=== PATIENT | female | born 1940 | race Caucasian/White ===

== ENCOUNTER 2018-09-09 06:52 | Day surgery (SDC) | payer OTHER ==
[2018-09-09] MEDS ORDERED: LIDOCAINE 2% MPF 5 ML VIAL ONE (07:30)
[2018-09-09] MEDS ORDERED: BUPIVACAINE 0.25% PF 10 ML VIAL ONE (07:31)
[2018-09-09] MEDS ORDERED: NA CHLORIDE 0.9% 500 ML ONE (07:31)
[2018-09-09] MEDS ORDERED: TETRACAINE HCL 0.5% 2ML OPTH ONE (07:31)
[2018-09-09] MEDS: CYCLOPENTOLATE 1% OPTH 2 ML ONE ×3 (07:32→07:42)
[2018-09-09] MEDS: PHENYLEPHRINE 10% OPTH 5ML ONE ×3 (07:32→07:42)
[2018-09-09] MEDS ORDERED: LIDOCAINE 1% MPF 5 ML VIAL ONE (07:32)
[2018-09-09] MEDS ORDERED: PROPOFOL 200 MG/20 ML VIAL IV ONE (08:03)
[2018-09-09] MEDS ORDERED: LIDOCAINE 1% MPF 2 ML AMPULE ONE (08:06)
[2018-09-09] MEDS ORDERED: NS 0.9% VIAL 10 ML ONE (08:07)
[2018-09-09] MEDS ORDERED: EPINEPHRINE/PF 1 MG/ML AMP ONE (08:08)
[2018-09-09] MEDS ORDERED: BALANCED SALT IRRIG PLAIN 500 ML BTL IRR ONE (08:09)
[2018-09-09] MEDS ORDERED: DUOVISC 1 KIT OPTH ONE (08:10)
[2018-09-09] MEDS: MOXIFLOXACIN HCL 10 DROPS/ML **OR USE OPTH ONE ×2 (08:36→08:47)
--- NOTE | 2018-09-09 08:54 | P.BOP ---
Preoperative diagnosis: Nuclear sclerotic cataract OS Postoperative diagnosis: Same Primary procedure: Phacoemulsification with IOL OS Estimated blood loss: None Anesthesia: Local (Subtenon's infusion with anesthesia for cataract surgery) Complications: None Implants: SA60WF +23.5 Transferred to: Other (Day surgery) Condition: Good
--- NOTE | 2018-09-09 20:14 | OP ---
Date of Procedure: 09/09/2018 Surgeon: Shelbi Flores MD Anesthesiologist: Sierra Lloyd CRNA and Aden Raymond MD Preoperative Diagnosis: Nuclear sclerotic cataract, OS (left eye). Operation Performed: Phacoemulsification with intraocular lens implant, left eye. Anesthesia: Per cataract surgery. Complications: None. Description Of Procedure: In day surgery, the patient was prepped with Betadine and draped. A conju nctival incision was made in the inferior nasal quadrant with Jose Guadalupe scissors. A sub-Tenon block c onsisting of a 1:1 mixture of 2% Xylocaine and 0.25% bupivacaine was placed through the conjunctival incision with a blunt cannula. A Honan balloon was placed over the eye and the patient was transferr ed to the operating room. In the operating room the patient was prepped and draped in the usual sterile fashion for ophthalmic surgery. A lid speculum was placed in the left eye. Two paracentesis sites were made superiorly and inferiorly in the limbal cornea. Viscoat was placed in the anterior chamber and a crescent blade wa s used to make a corneal groove and tunnel, and a keratome was used to enter the anterior chamber. P rovisc was placed in the anterior chamber and a 360 degree capsulotomy was performed with a cystitome . The lens was hydrodissected with BSS and rotated freely. The lens was removed with a stop and cho p technique. 5.53 phaco CDE was used to remove the lens. Residual cortex was removed with the irrig ation and aspiration. Provisc was placed in the capsular bag. A SA60WF +23.5 lens was placed in the capsular bag without complications. Irrigation and aspiration was used to remove residual viscoelas tic. The paracentesis sites were hydrated with BSS. The wound and paracentesis sites were inspected and found to be watertight. Vigamox 0.07 cc was placed intracamerally at the end of the procedure. The eye was irrigated with balanced salt solution. The eye was patched with a soft cotton patch and Cárdenas metal shield. The patient was returned to day surgery in good condition. Comments: Discharge Instructions: Ms. Santacruz is discharged to home in good condition and is to follow with Wilman Flores in morning. TRACI/DREW Voice ID: [id number] Report ID: [id number]
== END 2018-09-09 09:35 | disposition home or self-care (01) ==
LOC: OR 06:52
PROVIDERS: ATTEND Ophthalmology Retina Specialist
PROC: 08RK3JZ Replacement of Left Lens with Synthetic Substitute, Percutaneous Approach (ICD-10-PCS; principal; 2018-09-09 08:30)
DX: H25.12 Age-related nuclear cataract, left eye (principal)
CPT/HCPCS: 66984; J0171; J2001; J2704; V2630

== ENCOUNTER 2020-07-17 08:15 | Emergency (ER) | payer OTHER ==
--- NOTE | 2020-07-17 09:07 | RAD REPORT ---
EXAM DESCRIPTION: RAD - Foot Right 3 View - 07/17/2020 8:54 am CLINICAL HISTORY: PAIN, trauma, site of pain not further characterized COMPARISON: No comparisons FINDINGS: No gross fracture deformity seen and no dislocation or periosteal reaction. Moderate sever ity degenerative change present at the first MTP joint. IP joint degenerative changes are present but mild for age. No erosive or destructive bone process. The medial margin of the tarsal navicular bone shows cortical irregularity on the AP projection. This is not definitive for fracture and needs leena elation with physical exam findings. Cortical irregularity and soft tissue calcifications are present along the dorsal surface of the anterior talus. This can be a site of bone avulsion. Reactive calcif ications from prior trauma can have a similar appearance. Plantar and Achilles spurs are present. Soft tissue swelling is present over the dorsum of the foot. No air or foreign body in the soft tissues. IMPRESSION: No gross fracture deformity is seen. Cortical irregularity along the dorsal surface of the tarsal navicular bone and the anterior dorsal s urface of the talus favored to be chronic change. If the patient continues to have findings concerning for fracture, follow-up MR imaging could be perf ormed.
--- NOTE | 2020-07-17 09:12 | ER ---
Nurse's Notes [facility] Name: Megan Santacruz Age: 79 yrs Sex: Female : 1940 Arrival Date: 07/17/2020 Time: 08:18 Bed 6 Private MD: Diagnosis: Unspecified sprain of right foot Presentation: 07/17 08:24 Chief complaint: Patient states: right foot injury yesterday after missing a step. sv Coronavirus screen: Client denies travel out of the [place] in the last 14 days. At this time, the client does not indicate any symptoms associated with coronavirus-19. Ebola Screen: No symptoms or risks identified at this time. Risk Assessment: Do you want to hurt yourself or someone else? Patient reports no desire to harm self or others. Onset of symptoms was July 16, 2020. 08:24 Method Of Arrival: Wheelchair sv 08:24 Acuity: PAPO 4 sv 08:28 Initial Sepsis Screen: Does the patient meet any 2 criteria? No. Patient's initial tw2 sepsis screen is negative. Does the patient have a suspected source of infection? No. Patient's initial sepsis screen is negative. Triage Assessment: 08:28 General: Appears in no apparent distress. slender, well groomed, Behavior is calm, tw2 cooperative, appropriate for age. Pain: Complains of pain in right foot and ankle. Neuro: Level of Consciousness is awake, alert, obeys commands, Oriented to person, place, time, situation. Cardiovascular: Patient's skin is warm and dry. Respiratory: Airway is patent Respiratory effort is even, unlabored, Respiratory pattern is regular, agonal. GI: No signs and/or symptoms were reported involving the gastrointestinal system. Derm: Skin is intact, is fragile, is thin, Skin is dry, Skin temperature is warm. Musculoskeletal: Circulation, motion, and sensation intact. Range of motion: intact in all extremities, Reports pain in right foot and ankle. 08:30 Injury Description: pt missed a step yesterday. tw2 Historical: - Allergies: 08:26 PENICILLINS; sv 08:26 Sulfa (Sulfonamide Antibiotics); sv 08:26 Codeine; sv 08:26 Aspirin; sv 08:26 Meperidine; sv 08:26 Microdantin; sv - PMHx: 08:26 None; sv - PSHx: 08:26 Cholecystectomy; left hip; sv - Immunization history:: Flu vaccine is up to date. - Social history:: Smoking status: Patient denies any tobacco usage or history of. - Family history:: not pertinent. - Hospitalizations: : No recent hospitalization is reported. Screenin:25 Abuse screen: Denies threats or abuse. Nutritional screening: No deficits noted. tw2 Tuberculosis screening: No symptoms or risk factors identified. Fall Risk Secondary diagnosis (15 points) impaired mobility. Assessment: 08:24 Reassessment: provider at bedside at this time. tw2 08:30 Reassessment: see triage assessment. tw2 08:45 Reassessment: xray at bedside at this time. tw2 09:13 Reassessment: No changes from previously documented assessment. Patient and/or family tw2 updated on plan of care and expected duration. Pain level reassessed. Patient is alert, oriented x 3, equal unlabored respirations, skin warm/dry/pink. provider at bedside at this time with results. Vital Signs: 08:27 BP 130 / 74; Pulse 81; Resp 16; Temp 97.5(TE); Pulse Ox 100% on R/A; Weight 59.87 kg; dh3 Height 5 ft. 5 in. (165.10 cm); Pain 0/10; 09:13 BP 106 / 63; Pulse 70; Resp 17; Pulse Ox 99% on R/A; tw2 08:27 Body Mass Index 21.97 (59.87 kg, 165.10 cm) 3 ED Course: 08:18 Patient arrived in ED. rg4 08:19 Thomas Dyer MD is Attending Physician. rn 08:24 Meg Martinez RN is Primary Nurse. tw2 08:25 Triage completed. sv 08:25 Bed in low position. Call light in reach. Pulse ox on. NIBP on. Warm blanket given. tw2 08:30 Arm band placed on. tw2 08:54 XRAY Foot RIGHT 3 View In Process Unspecified. EDMS 09:10 Jakub Irene MD is Referral Physician. rn 09:21 Ortho shoe applied to right foot. dh3 09:23 No provider procedures requiring assistance completed. Patient did not have IV access tw2 during this emergency room visit. Administered Medications: No medications were administered Outcome: 09:11 Discharge ordered by . rn 09:23 Discharged to home via wheelchair. tw2 : Condition: stable :23 Discharge instructions given to patient, Instructed on discharge instructions, follow up and referral plans. Demonstrated understanding of instructions, follow-up care. :24 Patient left the ED. tw2 Signatures: Dispatcher [employer] Leah Garcia RN RN sv Nieto, Roman, MD MD rn Wise, Tara, RN RN 2 Angie De La Torre [facility] Alisha Rueda [facility]
--- NOTE | 2020-07-17 09:12 | EDPHYS ---
Physician Documentation [facility] Name: Megan Santacruz Age: 79 yrs Sex: Female : 1940 Arrival Date: 07/17/2020 Time: 08:18 Bed 6 Private MD: ED Physician Thomas Dyer HPI: 07/17 09:07 This 79 yrs old Female presents to ER via Wheelchair with complaints of Foot rn Injury. 09:07 The patient presents with an injury, pain, that is acute. The complaints affect the rn right foot. Context: resulted from a mis-step by the patient, the patient can partially bear weight, the patient is able to ambulate. Onset: The symptoms/episode began/occurred yesterday. Modifying factors: The symptoms are alleviated by elevation of extremity, ice packs, the symptoms are aggravated by weight bearing, movement. Severity of symptoms: At their worst the symptoms were moderate, in the emergency department the symptoms are unchanged. The patient has not experienced similar symptoms in the past. The patient has not recently seen a physician. Historical: - Allergies: 08:26 PENICILLINS; sv 08:26 Sulfa (Sulfonamide Antibiotics); sv 08:26 Codeine; sv 08:26 Aspirin; sv 08:26 Meperidine; sv 08:26 Microdantin; sv - PMHx: 08:26 None; sv - PSHx: 08:26 Cholecystectomy; left hip; sv - Immunization history:: Flu vaccine is up to date. - Social history:: Smoking status: Patient denies any tobacco usage or history of. - Family history:: not pertinent. - Hospitalizations: : No recent hospitalization is reported. ROS: 09:07 MS/Extremity: + right foot injury and pain Skin: Negative for rash, and discoloration. rn Exam: 09:07 Constitutional: This is a well developed, well nourished patient who is awake, alert, rn and in no acute distress. MS/ Extremity: Pulses equal, no cyanosis. Neurovascular intact. + mid foot swelling right foot with ecchymosis. No ankle tenderness, no toe tenderness or abnormality. Vital Signs: 08:27 BP 130 / 74; Pulse 81; Resp 16; Temp 97.5(TE); Pulse Ox 100% on R/A; Weight 59.87 kg; dh3 Height 5 ft. 5 in. (165.10 cm); Pain 0/10; 09:13 BP 106 / 63; Pulse 70; Resp 17; Pulse Ox 99% on R/A; tw2 08:27 Body Mass Index 21.97 (59.87 kg, 165.10 cm) dh3 MDM: 08:19 Patient medically screened. rn 09:07 Differential diagnosis: fracture, sprain. Data reviewed: vital signs, nurses notes, rn radiologic studies, plain films, and as a result, I will discharge patient. Counseling: I had a detailed discussion with the patient and/or guardian regarding: the historical points, exam findings, and any diagnostic results supporting the discharge/admit diagnosis, radiology results, the need for outpatient follow up, to return to the emergency department if symptoms worsen or persist or if there are any questions or concerns that arise at home. Response to treatment: the patient's symptoms have mildly improved after treatment, and as a result, I will discharge patient. Special discussion: I discussed with the patient/guardian in detail that at this point there is no indication for admission to the hospital. It is understood, however, that if the symptoms persist or worsen the patient needs to return immediately for re-evaluation. ED course: No acute fracture seen on xray, will splint with post-op shoe and f/u with ortho for repeat imaging. . 07/17 08:26 Order name: XRAY Foot RIGHT 3 View; Complete Time: 09:11 rn 07/17 09:03 Order name: Splint: post-op shoe; Complete Time: 09:21 rn Administered Medications: No medications were administered Disposition: 07/17/20 09:11 Discharged to Home. Impression: Unspecified sprain of right foot. - Condition is Stable. - Discharge Instructions: Foot Sprain. - Medication Reconciliation Form, Thank You Letter, Antibiotic Education, Prescription Opioid Use form. - Follow up: Jakub Irene MD; When: As needed; Reason: Recheck today's complaints, Re-evaluation by your physician. - Problem is new. - Symptoms have improved. Signatures: Dispatcher [employer] EDLeah Cao RN RN sv Nieto, Roman, MD MD rn Wise, Tara, RN RN tw2 Corrections: (The following items were deleted from the chart) 09:24 09:11 07/17/2020 09:11 Discharged to Home. Impression: Unspecified sprain of right tw2 foot. Condition is Stable. Forms are Medication Reconciliation Form, Thank You Letter, Antibiotic Education, Prescription Opioid Use. Follow up: Jakub Irene; When: As needed; Reason: Recheck today's complaints, Re-evaluation by your physician. Problem is new. Symptoms have improved. rn
[2020-07-19 22:25] VITALS: TEMP 97.5
[2020-07-19 22:26] VITALS: BP 106/63; O2SAT 99
== END 2020-07-17 09:24 | disposition home or self-care (01) ==
LOC: ER 08:15
DX: S93.601A Unspecified sprain of right foot, initial encounter (principal); X58.XXXA Exposure to other specified factors, initial encounter; Y93.9 Activity, unspecified; Y92.9 Unspecified place or not applicable; Z88.0 Allergy status to penicillin; Z88.2 Allergy status to sulfonamides; Z88.5 Allergy status to narcotic agent; Z88.8 Allergy status to other drugs, medicaments and biological substances
CPT/HCPCS: 99283

== ENCOUNTER → 2023-09-21 | Emergency (ER) | payer OTHER ==
[~2023-09-21] MED LIST: DERMABOND SKIN ADHESIVE TOP ONE; TDAP (DIPHTH,PERTUSS(ACELL),TET VAC) 0.5 ML VIAL IMVAC ONE
--- NOTE | 2023-09-21 09:49 | RAD REPORT ---
EXAM DESCRIPTION: RAD - Forearm Right - 09/21/2023 9:42 am CLINICAL HISTORY: PAIN COMPARISON: Hand Right 3 View dated 09/21/2023 FINDINGS: Mildly comminuted intra-articular fracture of the distal radius is present. Ulnar styloid fracture also likely present. No dislocation seen.
--- NOTE | 2023-09-21 09:50 | RAD REPORT ---
EXAM DESCRIPTION: RAD - Hand Right 3 View - 09/21/2023 9:42 am CLINICAL HISTORY: PAIN COMPARISON: No comparisons FINDINGS: Intra-articular fracture of the distal radius is present. Ulnar styloid avulsion fracture also seen. Prominent degenerative change first carpometacarpal joint. 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
--- NOTE | 2023-09-21 12:53 | EDPHYS ---
Physician Documentation [facility] Name: Megan Santacruz Age: 83 yrs Sex: Female : 1940 Arrival Date: 09/21/2023 Time: 08:59 Bed 20 Private MD: Del Carias H ED Physician Thomas Dyer HPI: 09/21 09:39 This 83 yrs old Female presents to ER via Ambulatory with complaints of Fall Injury, rn wrist injury. 09:39 Details of fall: The patient fell from an upright position. Onset: The symptoms/episode rn began/occurred just prior to arrival. Associated injuries: The patient sustained Right wrist and forearm. Severity of symptoms: At their worst the symptoms were moderate, in the emergency department the symptoms are unchanged. The patient has not experienced similar symptoms in the past. Patient reports was walking, tripped, fell and injured right wrist and forearm. Laceration/skin avulsion to the right forearm with deformity of the right wrist and hand. Denies any other injury or pain. No LOC. Does not take blood thinners. Unknown last tetanus shot. Historical: - Allergies: 09:12 Aspirin; mb9 09:12 Codeine; mb9 09:12 meperidine; mb9 09:12 microdantin; mb9 09:12 PENICILLINS; mb9 09:12 Sulfa (Sulfonamide Antibiotics); mb9 - PMHx: 09:12 Hypertensive disorder; mb9 - PSHx: 09:12 Cholecystectomy; mb9 - Immunization history:: Adult Immunizations up to date. - Social history:: Smoking status: Patient denies any tobacco usage or history of. - Family history:: not pertinent. - Hospitalizations: : No recent hospitalization is reported. ROS: 09:41 Constitutional: Negative for fever, chills, and weight loss, ENT: Negative for injury, rn pain, and discharge, Neck: Negative for injury, pain, and swelling, Cardiovascular: Negative for chest pain, palpitations, and edema, Respiratory: Negative for shortness of breath, cough, wheezing, and pleuritic chest pain, Abdomen/GI: Negative for abdominal pain, nausea, vomiting, diarrhea, and constipation, MS/Extremity: + for right forearm and wrist injury Skin: + laceration/avulsion to right forearm Neuro: Negative for headache, weakness, numbness, tingling, and seizure, Exam: 09:41 Constitutional: This is a well developed, well nourished patient who is awake, alert, rn and in no acute distress. Head/Face: Normocephalic, atraumatic. Neck: No midline cervical tenderness Chest/axilla: Normal chest wall appearance and motion. Nontender with no deformity. No lesions are appreciated. Cardiovascular: Regular rate and rhythm. No pulse deficits. Respiratory: No increased work of breathing, no retractions or nasal flaring. Abdomen/GI: Soft, non-tender MS/ Extremity: Pulses equal, no cyanosis. Neurovascular intact. Swelling and ecchymosis to the right distal wrist extending into the proximal hand. Tenderness over distal radius with slight dorsal deformity. Right dorsal forearm with chevron skin avulsion/laceration with 2 cm on both edges of wound. No active bleeding. No foreign bodies or contamination. Skin is very thin in that region and not sure he can take sutures. Neuro: Awake and alert, GCS 15, oriented to person, place, time, and situation. Cranial nerves II-XII grossly intact. Motor strength 5/5 in all extremities. Sensory grossly intact. Vital Signs: 09:11 BP 158 / 93; Pulse 73; Resp 16; Temp 98; Pulse Ox 100% ; Weight 57.15 kg; Height 5 ft. mb9 5 in. ; Pain 8/10; 09:37 BP 138 / 94; Pulse 70; Resp 16; Pulse Ox 99% on R/A; mb9 11:19 BP 134 / 71; Pulse 74; Resp 16; Pulse Ox 100% on R/A; mb9 09:11 Body Mass Index 20.97 (57.15 kg, 165.1 cm) mb9 09:11 Pain Scale: Adult mb9 Procedures: 12:50 Splinting: Splint applied to right wrist using Orthoglass splint, wrist splint, applied rn by myself. nurse. Examined by me, post splint application: neurovascular intact, 2+ distal pulses palpable, brisk capillary refill noted, Patient tolerated well, Splinted after fingertrap to gravity. MDM: 09:08 Patient medically screened. rn 11:25 ED course: Wound is so fragile with very thin skin superficially that sutures would not rn hold. Especially given the fact that patient is going to be put in a splint on that arm, decision made jointly with patient to approximate wound with Steri-Strips and dressed with nonadherent dressing underlying splint.. 12:18 ED course: And approximated with Steri-Strips. Patient now in finger traps to gravity rn for gentle traction and splinting. 12:50 Differential diagnosis: abrasion, contusion, fracture, sprain, strain. Data reviewed: rn vital signs, nurses notes, radiologic studies, plain films, and as a result, I will discharge patient. Counseling: I had a detailed discussion with the patient and/or guardian regarding the historical points, exam findings, and any diagnostic results supporting the discharge/admit diagnosis, radiology results, the need for outpatient follow up, to return to the emergency department if symptoms worsen or persist or if there are any questions or concerns that arise at home. Response to treatment: the patient's symptoms have markedly improved after treatment, and as a result, I will discharge patient. 09/21 09:19 Order name: XRAY Forearm RIGHT; Complete Time: 09:51 rn 09/21 09:19 Order name: XRAY Hand RIGHT 3 View; Complete Time: 09:51 rn 09/21 09:19 Order name: NPO; Complete Time: 09:24 rn 09/21 09:19 Order name: Wound Care; Complete Time: 09:24 rn 09/21 09:19 Order name: Dermabond; Complete Time: :24 rn 09/21 10:51 Order name: Misc. Order: finger trap to gravity; Complete Time: 12:00 rn Administered Medications: 09:51 Drug: Tetanus Toxoid,Adsorbed IM 0.5 ml IM once; Provide Vaccine Information Statement mb9 (VIS). {Polish [employer]ounder: [employer]; Exp: SunAug 11 2025; Lot #: [id number]; Series: 1 of 1; Patient Consent: Obtained; Date/Time: ; Source Name: Megan Santacruz; Source Relationship: Self; Address Information: [address] [place] [id number]; ; Education: Provided; VIS Presented Date: ; VIS Publication: Tetanus/Diphtheria (Td) VIS 09/02/2013 (historic)} Route: IM; Site: right deltoid; 12:00 Follow up: Response: No adverse reaction mb9 Disposition Summary: 09/21/23 12:53 Discharge Ordered Notes: Location: Home rn Problem: new rn Symptoms: have improved rn Condition: Stable rn Diagnosis - Fracture of shaft of radius - Intraarticular, closed, right, acute rn - Displaced fracture of right ulna styloid process rn Followup: rn - With: Toño Jacobs MD - When: 5 - 6 days - Reason: Recheck today's complaints, Continuance of care, Re-evaluation by your physician Discharge Instructions: - Discharge Summary Sheet rn - Wrist Fracture Treated With Immobilization rn Forms: - Medication Reconciliation Form rn - Thank You Letter rn - Antibiotic help desk intern - Prescription Opioid Use rn - Patient Portal Instructions rn - Leadership Thank You Letter rn Prescriptions: - gabapentin 300 mg Oral capsule - take 1 capsule ORAL route every 12 hours As needed; 14 capsule; Refills: 0, rn Product Selection Permitted Signatures: Dispatcher [employer] Thomas Deutsch MD MD rn Breneman, Chelsy Kimble RN RN mb9
--- NOTE | 2023-09-21 12:53 | ER ---
Nurse's Notes [facility] Name: Megan Santacruz Age: 83 yrs Sex: Female : 1940 Arrival Date: 09/21/2023 Time: 08:59 Bed 20 Private MD: Del Carias H Diagnosis: Fracture of shaft of radius-Intraarticular, closed, right, acute;Displaced fracture of right ulna styloid process Presentation: 09/21 09:11 Chief complaint: Patient states: "About 1 hr ago, I was walking in my living room, mb9 tripped, and fell landing on my right hand/wrist. It's swollen and can barley move my fingers. I also cut my right forearm as well.". Coronavirus screen: Vaccine status: Patient reports being unvaccinated. Ebola Screen: No symptoms or risks identified at this time. Initial Sepsis Screen: Does the patient meet any 2 criteria? No. Patient's initial sepsis screen is negative. Does the patient have a suspected source of infection? No. Patient's initial sepsis screen is negative. Risk Assessment: Do you want to hurt yourself or someone else? Patient reports no desire to harm self or others. Onset of symptoms was September 21, 2023. 09:11 Method Of Arrival: Ambulatory mb9 09:11 Acuity: PAPO 3 mb9 Triage Assessment: 09:12 General: Appears uncomfortable, Behavior is calm, cooperative. Pain: Complains of pain mb9 in right hand and right arm Pain does not radiate. Pain currently is 8 out of 10 on a pain scale. Quality of pain is described as throbbing, Pain began suddenly, Is continuous, Aggravated by repositioning. EENT: No signs and/or symptoms were reported regarding the EENT system. Neuro: Francois Agitation-Sedation Scale (RASS): 0 - Alert and Calm Level of Consciousness is awake, alert, obeys commands, Oriented to person, place, time, situation, Appropriate for age. Cardiovascular: Patient's skin is warm and dry. Respiratory: Airway is patent Respiratory effort is even, unlabored, Respiratory pattern is regular, symmetrical. GI: No signs and/or symptoms were reported involving the gastrointestinal system. : No signs and/or symptoms were reported regarding the genitourinary system. Derm: Wound noted right arm Wound is skin abrasion. No active bleeding noted. Musculoskeletal: Range of motion: limited in right wrist. Historical: - Allergies: 09:12 Aspirin; mb9 09:12 Codeine; mb9 09:12 meperidine; mb9 09:12 microdantin; mb9 09:12 PENICILLINS; mb9 09:12 Sulfa (Sulfonamide Antibiotics); mb9 - PMHx: 09:12 Hypertensive disorder; mb9 - PSHx: 09:12 Cholecystectomy; mb9 Historical Immunization: - Administered Vaccines 09:51 Tetanus Toxoid,Adsorbed IM 0.5 ml mb9 [employer]: [employer]; Exp: SunAug 11 2025; Lot #: [id number]; Series: 1 of ; Patient Consent: Obtained; Date/Time: ; Source Name: Megan Santacruz; Source Relationship: Self; Address Information: [address] [place] [address]; ; Education: Provided; VIS Presented Date: ; VIS Publication: Tetanus/Diphtheria (Td) VIS 09/02/2013 (historic) - Immunization history:: Adult Immunizations up to date. - Social history:: Smoking status: Patient denies any tobacco usage or history of. - Family history:: not pertinent. - Hospitalizations: : No recent hospitalization is reported. Screenin:14 [facility] ED Fall Risk Assessment (Adult) History of falling in the last 3 months, mb9 including since admission Yes- single mechanical fall (1 pt) Confusion or Disorientation No (0 pts) Intoxicated or Sedated No (0 pts) Impaired Gait No (0 pts) Mobility Assist Device Used No (0 pt) Altered Elimination No (0 pt) Score/Fall Risk Level 0 - 2 = Low Risk Oriented to surroundings, Maintained a safe environment, Educated pt \\T\\ family on fall prevention, incl call for assistance when getting out of bed. Abuse screen: Denies threats or abuse. Nutritional screening: No deficits noted. Tuberculosis screening: No symptoms or risk factors identified. Assessment: 09:14 Reassessment: see triage assessment. mb9 10:39 Reassessment: No changes from previously documented assessment. Patient and/or family mb9 updated on plan of care and expected duration. Pain level reassessed. Patient is alert, oriented x 3, equal unlabored respirations, skin warm/dry/pink. 12:00 Reassessment: No changes from previously documented assessment. Patient and/or family mb9 updated on plan of care and expected duration. Pain level reassessed. Patient is alert, oriented x 3, equal unlabored respirations, skin warm/dry/pink. 13:05 Reassessment: Patient and/or family updated on plan of care and expected duration. Pain mb9 level reassessed. Patient is alert, oriented x 3, equal unlabored respirations, skin warm/dry/pink. Patient states feeling better. Patient states symptoms have improved. Cardiovascular: Capillary refill is brisk in bilateral fingers. Vital Signs: 09:11 BP 158 / 93; Pulse 73; Resp 16; Temp 98; Pulse Ox 100% ; Weight 57.15 kg; Height 5 ft. mb9 5 in. ; Pain 8/10; 09:37 BP 138 / 94; Pulse 70; Resp 16; Pulse Ox 99% on R/A; mb9 11:19 BP 134 / 71; Pulse 74; Resp 16; Pulse Ox 100% on R/A; mb9 09:11 Body Mass Index 20.97 (57.15 kg, 165.1 cm) mb9 09:11 Pain Scale: Adult mb9 ED Course: 09:00 Patient arrived in ED. mr 09:00 Del Carias DO is Private Physician. mr 09:03 Chelsy Pittman, RN is Primary Nurse. mb9 09:08 Thomas Dyer MD is Attending Physician. rn 09:12 Triage completed. mb9 09:12 Arm band placed on. mb9 09:14 Bed in low position. Call light in reach. Side rails up X 1. Client placed on mb9 continuous cardiac and pulse oximetry monitoring. NIBP monitoring applied. Door closed. Noise minimized. Warm blanket given. 09:14 No provider procedures requiring assistance completed. mb9 09:15 Wound care: to abrasion, located on right arm was cleaned with soap and water, dressed mb9 with ice pack applied. Patient tolerated well. 09:43 XRAY Forearm RIGHT In Process Unspecified. EDMS 09:43 XRAY Hand RIGHT 3 View In Process Unspecified. EDMS 12:52 Toño Jacobs MD is Referral Physician. rn 13:06 Patient did not have IV access during this emergency room visit. mb9 Administered Medications: 09:51 Drug: Tetanus Toxoid,Adsorbed IM 0.5 ml IM once; Provide Vaccine Information Statement mbLayla (VIS). {Wel[employer]: [employer]; Exp: SunAug 11 2025; Lot #: [id number]; Series: of ; Patient Consent: Obtained; Date/Time: ; Source Name: Megan Santacruz; Source Relationship: Self; Address Information: [address] [place], [place] [id number]; ; Education: Provided; VIS Presented Date: ; VIS Publication: Tetanus/Diphtheria (Td) VIS 09/02/2013 (historic)} Route: IM; Site: right deltoid; 12:00 Follow up: Response: No adverse reaction fermin Medication: 09:14 VIS not applicable for this client. fermin Outcome: 12:53 Discharge ordered by . rn 13:06 Discharged to home ambulatory, fermin 13:06 Condition: stable 13:06 Discharge instructions given to patient, Instructed on discharge instructions, follow up and referral plans. Demonstrated understanding of instructions, follow-up care, medications, Prescriptions given X 1, 13:06 Patient left the ED. mb9 Signatures: Dispatcher [employer] Chelsy Colelo Reg Reg mr Nieto, Roman, MD MD rn Breneman, Mary Beth, RN RN mb9
[2023-09-21 13:28] VITALS: BP 134/71; TEMP 98; O2SAT 100
== END ==
LOC: ER 08:59
PROC: 2W3CX1Z Immobilization of Right Lower Arm using Splint (ICD-10-PCS; principal; 2023-09-21)
DX: S52.391A Other fracture of shaft of radius, right arm, initial encounter for closed fracture (principal); S52.611A Displaced fracture of right ulna styloid process, initial encounter for closed fracture; Z23 Encounter for immunization; Z88.0 Allergy status to penicillin; Z88.5 Allergy status to narcotic agent; Z88.6 Allergy status to analgesic agent; Z88.8 Allergy status to other drugs, medicaments and biological substances

== ENCOUNTER 2024-08-24 16:30 | Inpatient (IN) | payer OTHER ==
[2024-08-24] MEDS ORDERED: ONDANSETRON 4 MG/2 ML VIAL ONE (17:53)
[2024-08-24 18:23] LABS: Absolute Lymphocytes (CBC) 1.2 K/uL (0.7-4.9); Absolute Monocytes 0.4 K/uL (0.1-1.3); Absolute Neutrophil 3.4 K/uL (1.8-8.0); Basophils % 0.3 % (0-1.3); Eosinophils % 0.3 % (0-4.4); Hematocrit 40.9 % (36.0-45.0); Hemoglobin 14.3 g/dL (12.0-15.0); Lymphocytes % 24.5 % (15.3-44.8); MCH 30.7 pg (27.0-35.0); MCHC 34.9 g/dL (32.0-36.0); Monocytes % 8.8 % (3.3-12.3); Neutrophils % 66.1 % (41.7-73.7); Platelets 219 thou/uL (152-406); RBC Red Blood Cell Count 4.65 M/uL (3.86-4.86); Red Cell Distribution Width 13.4 % (12.1-15.2)
[2024-08-24 18:36] LABS: ALT/SGPT 27 U/L (13-56); AST/SGOT 19 U/L (15-37); Albumin 3.4 g/dL (3.4-5.0); Albumin/Globulin Ratio 0.9 (1.1-1.8); Alkaline Phosphatase 98 U/L (45-117); Anion Gap 11.6 mEq/L (5.0-15.0); BUN Blood Urea Nitrogen 15 mg/dL (7-18); Bicarbonate 24 mEq/L (21-32); Bilirubin Total 0.7 mg/dL (0.2-1.0); Globulin 3.6 g/dL (2.3-3.5); Glomerular Filtration Rate 48 ml/min (=/>90); Glucose Level 105 mg/dL (74-106); Magnesium 2.1 mg/dL (1.6-2.4); Potassium 3.6 mEq/L (3.5-5.1); Sodium Level 138 mEq/L (136-145); Troponin High Sensitivity 6.6 pg/mL (<58.9)
[2024-08-24 18:38] LABS: Bilirubin Direct < 0.2 mg/dL (0-0.2); Bilirubin Indirect, Calculated 0.5 mg/dL (0.2-0.8)
[2024-08-24 18:51] LABS: SARS-CoV-2 Antigen CONTROL BLUE LINE VIS/BG OK; SARS-CoV-2 Antigen Rapid Res Negative (Negative)
--- NOTE | 2024-08-24 18:56 | RAD REPORT ---
EXAM: Chest Single View HISTORY: general weakness COMPARISON: None. FINDINGS: LUNGS/PLEURA: The lungs are clear. No pleural effusions or pneumothorax. No pulmonary edema. Calcifie d pulmonary nodules. Probable emphysema. MEDIASTINUM: The mediastinal silhouette is within normal limits. CARDIAC: The cardiac silhouette is within normal limits. UPPER ABDOMEN: No significant abnormality. BONES: No acute abnormality. LINES/TUBES/OTHER: N/A IMPRESSION: No evidence of acute cardiopulmonary disease.
[2024-08-24 20:37] LABS: Specific Gravity 1.026 (1.005-1.030); Sqamous Epithelial <5 /HPF (None Seen); Urine Bacteria None Seen /HPF (<20); Urine Bilirubin NEGATIVE (Negative); Urine Blood Negative (Negative); Urine Clarity Clear (Clear); Urine Color Yellow (Yellow); Urine Crystals Unidentified Few /HPF (None Seen); Urine Culture Reflex Order NOT NEEDED; Urine Glucose NEGATIVE (Negative); Urine Ketones 2+ (Negative); Urine Micro Reflex YN NO BILL MICROSCOPIC; Urine Mucus 1+ /HPF (None Seen); Urine Nitrite NEGATIVE (Negative); Urine Protein TRACE (Negative); Urine RBC <5 /HPF (None Seen); Urine Urobilinogen Normal (Normal); Urine WBC <5 /HPF (<5)
--- NOTE | 2024-08-24 21:13 | ER ---
Nurse's Notes [facility] Name: Megan Santacruz Age: 84 yrs Sex: Female : 1940 Arrival Date: 08/24/2024 Time: 16:30 Bed 13 Private MD: Diagnosis: Weakness Presentation: 08/24 16:49 Chief complaint: Patient states: NAUSEA WITH GENERAL WEAKNESS X 1 WEEK. STATES IS STILL db EATING. PT LIVES AT [facility]. PT HAVING A HARD TIME REMEMBER THINGS. Coronavirus screen: Client denies travel out of the [place] in the last 14 days. At this time, the client does not indicate any symptoms associated with coronavirus-19. Ebola Screen: Patient negative for fever greater than or equal to 101.5 degrees Fahrenheit, and additional compatible Ebola Virus Disease symptoms Patient denies exposure to infectious person. Patient denies travel to an Ebola-affected area in the 21 days before illness onset. No symptoms or risks identified at this time. Initial Sepsis Screen: Does the patient meet any 2 criteria? No. Patient's initial sepsis screen is negative. Does the patient have a suspected source of infection? No. Patient's initial sepsis screen is negative. Risk Assessment: Do you want to hurt yourself or someone else? Patient reports no desire to harm self or others. Onset of symptoms was August 18, 2024. 16:49 Method Of Arrival: Ambulatory db 16:49 Acuity: PAPO 3 db Triage Assessment: 16:50 General: Appears in no apparent distress. comfortable, Behavior is calm, cooperative. db Pain: Denies pain. Neuro: Level of Consciousness is awake, alert, obeys commands, Oriented to person, place, time. Respiratory: Airway is patent Respiratory effort is even, unlabored, Respiratory pattern is regular, symmetrical. Historical: - Allergies: 16:50 Aspirin; db 16:50 Codeine; db 16:50 meperidine; db 16:50 microdantin; db 16:50 PENICILLINS; db 16:50 Sulfa (Sulfonamide Antibiotics); db - Home Meds: 16:51 Lisinopril Oral [Active]; Metoprolol Tartrate Oral [Active]; citalopram oral [Active]; db clopidogrel oral [Active]; donepezil oral [Active]; Diazepam Oral [Active]; - PMHx: 16:50 Hypertensive disorder; db - PSHx: 16:50 Cholecystectomy; db - Immunization history:: Adult Immunizations unknown. - Infectious Disease History:: Denies. - Social history:: Smoking status: Patient denies any tobacco usage or history of. Screenin:17 [facility] ED Fall Risk Assessment (Adult) History of falling in the last 3 months, ko1 including since admission No falls in past 3 months (0 pts) Confusion or Disorientation No (0 pts) Intoxicated or Sedated No (0 pts) Impaired Gait No (0 pts) Mobility Assist Device Used No (0 pt) Altered Elimination No (0 pt) Score/Fall Risk Level 0 - 2 = Low Risk Oriented to surroundings, Maintained a safe environment, Educated pt \T\ family on fall prevention, incl call for assistance when getting out of bed, Assessed \T\ reinforced patient's understanding of fall precautions, Hourly rounding (assess needs \T\ fall precautionary measures) done. Abuse screen: Denies threats or abuse. Denies injuries from another. Nutritional screening: No deficits noted. Tuberculosis screening: No symptoms or risk factors identified. Assessment: 18:17 General: Appears in no apparent distress. Behavior is calm, cooperative, appropriate ko1 for age. Pain: Denies pain. Neuro: No deficits noted. Cardiovascular: No deficits noted. Respiratory: No deficits noted. GI: Reports nausea. : No deficits noted. No signs and/or symptoms were reported regarding the genitourinary system. EENT: No deficits noted. No signs and/or symptoms were reported regarding the EENT system. Derm: No deficits noted. No signs and/or symptoms reported regarding the dermatologic system. Musculoskeletal: Reports weakness in generalilzed. 19:20 Reassessment: Patient appears in no apparent distress at this time. Patient and/or kj2 family updated on plan of care and expected duration. Pain level reassessed. Patient is alert, oriented x 3, equal unlabored respirations, skin warm/dry/pink. 20:20 Reassessment: Patient appears in no apparent distress at this time. Patient and/or kj2 family updated on plan of care and expected duration. Pain level reassessed. Patient is alert, oriented x 3, equal unlabored respirations, skin warm/dry/pink. 08/25 04:04 Reassessment: LORNE HEAD (SISTER) TEL NO# [phone]. rg5 Vital Signs: 08/24 16:49 BP 146 / 97; Pulse 68; Resp 16; Temp 99.1; Pulse Ox 95% ; Weight 56.7 kg; Height 5 ft. db 5 in. ; Pain 0/10; 18:14 Temp 98.1; kb4 18:17 BP 145 / 95; Pulse 64; Resp 17; Pulse Ox 98% on R/A; ko1 20:49 BP 166 / 94; Pulse 66; Resp 20; Pulse Ox 100% on R/A; kj2 16:49 Body Mass Index 20.80 (56.70 kg, 165.1 cm) db 16:49 Pain Scale: Adult db ED Course: 16:32 Patient arrived in ED. im 16:50 Triage completed. db 16:51 Arm band placed on. db 17:00 Lele Mariee PA is PHCP. cp 17:00 Thomas Dyer MD is Attending Physician. cp 17:35 Radha Ramirez, ROBERTO is Primary Nurse. ko1 18:13 Initial lab(s) drawn, by me, sent to lab. EKG done, by ED staff, reviewed by Lele Mariee kb4 YAYO COVID swab sent to lab. Flu and/or RSV swab sent to lab. Inserted saline lock: 20 gauge in right antecubital area, using aseptic technique. Blood collected. Flushed with 10 mL NS. 18:17 Patient has correct armband on for positive identification. Allergy band placed. Bed in ko1 low position. Call light in reach. Side rails up X 1. Provided Education on: labs, meds. Client placed on continuous cardiac and pulse oximetry monitoring. NIBP monitoring applied. retail representative on. Door closed. Noise minimized. Lights dimmed. Warm blanket given. Pillow given. 18:17 RSV Sent. ko1 18:17 Influenza Screen (a \T\ B) Sent. ko1 18:17 SARS RAPID Sent. ko1 18:17 Basic Metabolic Panel Sent. ko1 18:17 CBC with Diff Sent. ko1 18:17 LFT's Sent. ko1 18:17 Magnesium Sent. ko1 18:17 Troponin HS Sent. ko1 18:43 XRAY Chest (1 view) In Process Unspecified. EDMS 19:33 Mahendra Moeller DO is Attending Physician. cp 19:55 No provider procedures requiring assistance completed. kj2 21:11 Vanessa Celaya MD is Hospitalizing Provider. cp 22:00 Patient admitted, IV remains in place. intact, No redness/swelling at site. rg5 22:30 Head Brain Wo Cont In Process Unspecified. EDMS 08/25 07:22 Primary Nurse role handed off by Radha Ramirez, ROBERTO bd 17:10 Paradise Kidd, RN is Primary Nurse. ll1 Administered Medications: 08/24 18:05 Drug: Ondansetron IVP 4 mg IVP once; over 2 minutes Route: IVP; Site: right antecubital;ko1 18:20 Follow up: Response: No adverse reaction ko1 Medication: 18:17 VIS not applicable for this client. ko1 Outcome: 21:12 Decision to Hospitalize by Provider. cp 22:00 Condition: stable rg5 22:00 Admitted to ER Hold. Please see [facility] for further documentation. rg5 22:00 Instructed on the need for admit, 08/25 22:05 Patient left the ED. vc1 Signatures: Dispatcher [employer] EDAL Octavia Ramey Lele Mariee, YAYO PA cp Paradise Kidd, RN RN ll1 Ida Guidry RN RN vc1 Radha Ramirez, RN RN ko1 Stephenie Meng, RN RN db Shayna Soni Rommel RN RN rg5 Mali Kurtz RN RN kj2 Lea Toribio kb4 Corrections: (The following items were deleted from the chart) 08/24 16:54 16:49 Chief complaint: Patient states: NAUSEA WITH GENERAL WEAKNESS X 1 WEEK. STATES IS db STILL EATING db
--- NOTE | 2024-08-24 21:13 | EDPHYS ---
Physician Documentation [facility] Name: Megan Santacruz Age: 84 yrs Sex: Female : 1940 Arrival Date: 08/24/2024 Time: 16:30 Bed 13 Private MD: ED Physician Mahendra Moeller HPI: 08/24 17:50 This 84 yrs old Female presents to ER via Ambulatory with complaints of Congestion, cp Nausea, General Weakness. 17:50 The patient's problem is reported as weakness, that is generalized. cp 17:50 Onset: The symptoms/episode began/occurred 1 week(s) ago. Duration: The episode is cp continuous. Associated signs and symptoms: Pertinent positives: sinus congestion, Pertinent negatives: abdominal pain, chest pain, diarrhea, headache, vomiting, fever. Patient's baseline: Neuro: alert and fully oriented, Motor: no deficits, Ambulation: walks without assistance, Speech: normal. Historical: - Allergies: 16:50 Aspirin; db 16:50 Codeine; db 16:50 meperidine; db 16:50 microdantin; db 16:50 PENICILLINS; db 16:50 Sulfa (Sulfonamide Antibiotics); db - Home Meds: 16:51 Lisinopril Oral [Active]; Metoprolol Tartrate Oral [Active]; citalopram oral [Active]; db clopidogrel oral [Active]; donepezil oral [Active]; Diazepam Oral [Active]; - PMHx: 16:50 Hypertensive disorder; db - PSHx: 16:50 Cholecystectomy; db - Immunization history:: Adult Immunizations unknown. - Infectious Disease History:: Denies. - Social history:: Smoking status: Patient denies any tobacco usage or history of. ROS: 17:55 Constitutional: Negative for body aches, chills, fever, poor PO intake, cp 17:55 Eyes: Negative for injury, pain, redness, and discharge, cp 17:55 ENT: Negative for drainage from ear(s), ear pain, sore throat, difficulty swallowing, difficulty handling secretions, 17:55 Cardiovascular: Negative for chest pain, edema, palpitations, 17:55 Respiratory: Negative for cough, shortness of breath, wheezing, 17:55 Abdomen/GI: Negative for abdominal pain, vomiting, diarrhea, constipation, anorexia, black/tarry stool, rectal bleeding, 17:55 : Negative for urinary symptoms, 17:55 Neuro: Positive for weakness, Negative for altered mental status, dizziness, headache, syncope, 17:55 All other systems are negative, Exam: 18:00 Constitutional: The patient appears in no acute distress, alert, awake, cp non-diaphoretic, non-toxic, well developed, well nourished, 18:00 Head/Face: Normocephalic, atraumatic. cp 18:00 Eyes: Periorbital structures: appear normal, Pupils: equal, round, and reactive to light and accomodation, Extraocular movements: intact throughout, Conjunctiva: normal, no exudate, no injection, Sclera: no appreciated abnormality, Lids and lashes: appear normal, bilaterally, 18:00 ENT: External ear(s): are unremarkable, Nose: is normal, Mouth: Lips: moist, Oral mucosa: pink and intact, moist, Posterior pharynx: Airway: no evidence of obstruction, patent, 18:00 Neck: ROM/movement: is normal, is supple, without pain, no range of motions limitations, no meningismus, no nuchal rigidity, 18:00 Chest/axilla: Inspection: normal, 18:00 Cardiovascular: Rate: normal, Rhythm: regular, Edema: is not appreciated, JVD: is not appreciated, 18:00 Respiratory: the patient does not display signs of respiratory distress, Respirations: normal, no use of accessory muscles, no retractions, labored breathing, is not present, Breath sounds: are clear throughout, no decreased breath sounds, no stridor, no wheezing, 18:00 Abdomen/GI: Inspection: abdomen appears normal, Palpation: abdomen is soft and non-tender, in all quadrants, 18:00 Back: pain, is absent, ROM is normal, 18:00 Neuro: Orientation: to person, place \T\ time. Mentation: is normal, Cerebellar function: is grossly normal, Motor: moves all fours, strength is normal, Sensation: is normal, 18:15 ECG was reviewed by the Attending Physician. cp 19:42 ECG was reviewed by the Attending Physician. cp Vital Signs: 16:49 BP 146 / 97; Pulse 68; Resp 16; Temp 99.1; Pulse Ox 95% ; Weight 56.7 kg; Height 5 ft. db 5 in. ; Pain 0/10; 18:14 Temp 98.1; kb4 18:17 BP 145 / 95; Pulse 64; Resp 17; Pulse Ox 98% on R/A; ko1 20:49 BP 166 / 94; Pulse 66; Resp 20; Pulse Ox 100% on R/A; kj2 16:49 Body Mass Index 20.80 (56.70 kg, 165.1 cm) db 16:49 Pain Scale: Adult db MDM: 17:00 Medical Screening Exam initiated cp 20:02 Management of patient was discussed with the following: Visual Effects Artist: DR Dao barrientos concerning EKG findings. Independent interpretation of the following test(s) in the Emergency Department EKG: See my EKG interpretation above. 21:00 Data reviewed: vital signs, nurses notes, lab test result(s), EKG, radiologic studies, cp plain films, and as a result, I will admit patient. 21:15 Management of patient was discussed with the following: Hospitalist: DR Celaya will cp admit after discussion. 08/24 17:46 Order name: Basic Metabolic Panel; Complete Time: 19:32 cp 08/24 19:32 Interpretation: Normal except: CRE 1.12; GFR 48. cp 08/24 17:46 Order name: CBC with Diff; Complete Time: 19:32 cp 08/24 19:33 Interpretation: Normal except: MPV 7.0. cp 08/24 17:46 Order name: LFT's; Complete Time: 19:32 cp 08/24 17:46 Order name: Magnesium; Complete Time: 19:32 cp 08/24 17:46 Order name: Troponin HS; Complete Time: 19:32 cp 08/24 17:46 Order name: SARS RAPID; Complete Time: 19:32 cp 08/24 17:46 Order name: Influenza Screen (a \T\ B); Complete Time: 19:32 cp 08/24 17:46 Order name: RSV; Complete Time: 19:32 cp 08/24 17:46 Order name: Urinalysis W/Microscopic; Complete Time: 20:54 cp 08/24 20:55 Interpretation: Normal except: UKET 2+; UPROT TRACE. cp 08/24 21:31 Order name: Magnesium EDMS 08/24 21:31 Order name: Thyroid Stimulating Hormone EDMS 08/24 21:31 Order name: CBC with Automated Diff EDMS 08/24 21:31 Order name: CBC with Automated Diff [facility] 08/24 21:31 Order name: Comprehensive Metabolic Panel [facility] 08/24 21:31 Order name: Comprehensive Metabolic Panel [facility] 08/24 21:31 Order name: Lipid Profile [facility] 08/24 21:31 Order name: Lipid Profile [facility] 08/24 21:31 Order name: Troponin High Sensitivity [facility] 08/24 21:31 Order name: Troponin High Sensitivity [facility] 08/24 21:32 Order name: Influenza Screen (A [facility] 08/24 21:32 Order name: Respiratory Syncytial Virus Ag [facility] 08/24 17:46 Order name: XRAY Chest (1 view); Complete Time: 19:32 cp 08/24 22:19 Order name: Head Brain Wo Cont [facility] 08/24 17:46 Order name: EKG; Complete Time: 17:46 cp 08/24 21:31 Order name: CONS Physician Consult [facility] 08/24 21:31 Order name: Occupational Therapy Consult [facility] 08/24 21:31 Order name: Physical Therapy Consult [facility] 08/24 17:46 Order name: Cardiac monitoring; Complete Time: 17:57 cp 08/24 17:46 Order name: EKG - Nurse/Tech; Complete Time: 18:12 cp 08/24 17:46 Order name: IV Saline Lock; Complete Time: 18:13 cp 08/24 17:46 Order name: Labs collected and sent; Complete Time: 18:13 cp 08/24 17:46 Order name: O2 Per Protocol; Complete Time: 17:56 cp 08/24 17:46 Order name: O2 Sat Monitoring; Complete Time: 17:57 cp 08/24 19:33 Order name: EKG - Nurse/Tech; Complete Time: 19:43 cp 08/24 20:04 Order name: PO challenge; Complete Time: 20:21 cp EC:15 Rate is 63 beats/min. Rhythm is regular. CO interval is normal. QRS interval is normal. cp QT interval is normal. Interpreted by me. Reviewed by me. 19:42 Rate is 57 beats/min. Rhythm is regular. CO interval is normal. QRS interval is normal. cp QT interval is normal. T waves are Inverted in lead aVL. Interpreted by me. Reviewed by me. Administered Medications: 18:05 Drug: Ondansetron IVP 4 mg IVP once; over 2 minutes Route: IVP; Site: right antecubital;ko1 18:20 Follow up: Response: No adverse reaction ko1 Disposition: 23:11 I was immediately available on-site in the Emergency Department for consultation in the ms3 care of the patient. 08/26 19:49 Chart complete. cp Disposition Summary: 08/24/24 21:12 Hospitalization Ordered Notes: Hospitalization Status: Observation cp Provider: Vanessa Celaya cp Condition: Stable cp Problem: new cp Symptoms: are unchanged cp Bed/Room Type: Standard cp Location: Telemetry/MedSurg (Inpatient)(08/25/24 20:10) vc1 Room Assignment: 231(08/25/24 20:10) vc1 Diagnosis - Weakness cp Forms: - Medication Reconciliation Form cp - SBAR form cp - Leadership Thank You Letter cp Signatures: Dispatcher [employer] EDMS Lele Mariee PA PA cp Able, Lacie, RN RN lg3 Mahendra Moeller DO DO ms3 Ida Guidry RN RN vc1 Radha Ramirez RN RN ko1 Stephenie Meng RN RN db Corrections: (The following items were deleted from the chart) 08/24 17:47 17:46 BASIC METABOLIC PANEL+C.LAB.BRZ ordered. EDMS EDMS 17:47 17:46 CBC+H.LAB.BRZ ordered. EDMS EDMS 17:47 17:46 HEPATIC FUNCTION+C.LAB.BRZ ordered. EDMS EDMS 17:47 17:46 MAGNESIUM+C.LAB.BRZ ordered. EDMS EDMS 17:47 17:46 Troponin High Sensitivity+C.LAB.BRZ ordered. EDMS EDMS 17:47 17:46 SARS-COV-2 Antigen Rapid+I.LAB.BRZ ordered. EDMS EDMS 17:47 17:46 Influenza Screen (A \T\ B)+BA.LAB.BRZ ordered. EDMS EDMS 17:47 17:46 Respiratory Syncytial Virus Ag+BA.LAB.BRZ ordered. EDMS EDMS 17:47 17:46 Urinalysis W/Microscopic+U.LAB.BRZ ordered. EDMS EDMS 22:44 21:12 Telemetry/MedSurg (observation) cp lg3 22:44 21:12 cp lg3 08/25 20:10 08/24 22:[address] [facility] ER HOLD lg3 vc1 08/25 20:10 08/24 22:44 ERHOLD- lg3 vc1 08/26 19:40 08/25 17:50 This 84 yrs old Female presents to ER via Ambulatory with complaints of cp Congestion, Nausea, General Weakness. cp
--- NOTE | 2024-08-24 21:23 | P.HP ---
Certification for Inpatient Patient admitted to: Observation With expected LOS: <2 Midnights Patient will require the following post-hospital care: None Practitioner: I am a practitioner with admitting privileges, knowledge of patient current condition, hospital course, and medical plan of care. Services: Services provided to patient in accordance with Admission requirements found in Title 42 Section 412.3 of the Code of Federal Regulations Patient History Date of Service: 08/24/24 Reason for admission: Weakness History of Present Illness: 84-year-old female past medical history of hypertension, cognitive decline/dementia on Aricept, resident of independent living facility at [facility] , who presented due to increasing weakness, nasal congestion as well as intermittent nausea since the last 3 days. Patient states she has been feeling more fatigued. She denies any fever or chills. She denies any headache or dizziness. She denies any shortness of breath. She denies any sick contact. Arrival in the ED vital signs were stable blood pressure 146/76 heart rate ranging from 64-68. Temp was marginal at 99.1. Chest x-ray shows no acute infiltrate, UA was negative, CBC and BMP were unremarkable except for creatinine of 1.1. EKG shows second-degree AV block with presumed Mobitz type II. Patient is being admitted for presumed heart block. Cardiology Dr. Dc was discussed with by the ED team and recommended holding patient metoprolol and monitoring Allergies aspirin Allergy (Verified 09/05/18 11:17) Hives codeine Allergy (Verified 09/05/18 11:17) Hives meperidine [From Demerol] Allergy (Verified 09/05/18 11:17) Hives Penicillins Allergy (Verified 09/05/18 11:17) Hives Sulfa (Sulfonamide Antibiotics) Allergy (Verified 09/05/18 11:17) Hives Home Medications: Citalopram [Celexa*] 20 mg PO DAILY 09/05/18 Oxycodone HCl/Acetaminophen [Oxycodone-Acetaminophen 10-325] 0.5 tab PO BEDTIME 09/05/18 diazePAM [Valium] 10 mg PO BEDTIME 09/05/18 lisinopriL [Prinivil*] 10 mg PO DAILY AFTER SUPPER 09/05/18 - Past Medical/Surgical History -: HTN -: Cognitive decline -: cheolecystectomy - Social History Smoking Status: Never smoker Counseled patient to stop smoking for: less than 10 minutes Smoking therapy provided: No Patient receptive to therapy: No Alcohol use: No CD- Drugs: No Place of Residence: Home Review of Systems General: Sweats, Weakness, Malaise ENT: Nose Discharge, Nose Congestion Gastrointestinal: Nausea Neurological: Weakness Physical Examination - Physical Exam General: Alert, In no apparent distress, Oriented x3, Cooperative HEENT: Atraumatic, Normocephalic, PERRLA Neck: Supple, 2+ carotid pulse no bruit, JVD not distended Respiratory: Clear to auscultation bilaterally, Normal air movement Cardiovascular: Normal pulses, Regular rate/rhythm, Normal S1 S2 Gastrointestinal: Normal bowel sounds, Soft and benign, Non-distended, No ascites, No tenderness Musculoskeletal: No clubbing, No swelling Neurological: Normal speech, Normal strength at 5/5 x4 extr, Normal tone, Sensation intact, Cranial nerves 3-12 intact - Studies Laboratory Data (last 24 hrs) 08/24/24 08/24/24 18:04 18:04 WBC 5.10 Hgb 14.3 Hct 40.9 Plt Count 219 Sodium 138 Potassium 3.6 BUN 15 Creatinine 1.12 H Glucose 105 Magnesium 2.1 Total Bilirubin 0.7 AST 19 ALT 27 Alkaline Phosphatase 98 Microbiology Data (last 24 hrs): 08/24/24 18:02 Nasopharnyx Influenza Type A Antigen Screen - Final 08/24/24 18:02 Nasopharnyx Influenza Type B Antigen Screen - Final 08/24/24 18:02 Nasopharnyx Respiratory Syncytial Virus Ag Scrn - Final Assessment and Plan - Problems (Diagnosis) (1) Weakness Current Visit: Yes Status: Acute (2) Hypertension Current Visit: Yes Status: Acute (3) AV block Current Visit: Yes Status: Acute (4) AV block, 2nd degree Current Visit: Yes Status: Acute - Plan Impression Weaknessmay be due to viral syndrome versus AV block etiology Second-degree AV block- new onset Hypertension Cognitive declinestable Plan Will admit patient to telemetry Place in telemetry Cardiology consult in a.m. Hold metoprolol as per cardiology Heart rate stable, continue to monitor Obtain TSH as well as magnesium level Borderline fever as well as nasal congestion worrisome for viral syndrome, follow flu influenza/RSV as well as COVID screen Resume Aricept Continue Plavix Lovenox for DVT prophylaxis GI prophylaxis with PPI Full code PT and OT eval Possible hospital stay for 24 to 48 hours Total time in evaluation greater than 70-minute Addenduminfluenza RSV and COVID-negative, continue to monitor Discharge Plan: Home Plan to discharge in: 24 Hours - Advance Directives Does patient have a Living Will: No Does patient have a Durable POA for Healthcare: No Time Spent Managing Pts Care (In Minutes): 75
[2024-08-24] MEDS ORDERED: MORPHINE 2 MG/ML SYR IV PRN (21:25)
[2024-08-24] MEDS ORDERED: ALBUTEROL 2.5 MG/3 ML NEB SOL NEB PRN (21:25)
[2024-08-24] MEDS ORDERED: HYDRALAZINE HCL 20 MG/ML VIAL IV PRN (21:27)
[2024-08-24] MEDS ORDERED: Oxycodone HCl/Acetaminophen 5/325 MG TAB PO PRN (21:28)
[2024-08-24] MEDS: AMLODIPINE 2.5 MG TAB PO SCH (22:13)
[2024-08-24] MEDS: HOME MED 1 EA UNK (Oxycodone Hcl/Acetaminophen [Oxycodone-Acetaminophen 10-325] Tablet) PO SCH (22:14)
--- NOTE | 2024-08-24 22:33 | RAD REPORT ---
EXAMINATION: CT HEAD WITHOUT CONTRAST CLINICAL INDICATION: Female, 84 years old.Weakness and fatigue, rule out CVA TECHNIQUE: Axial CT images from the skull base to the vertex without intravenous contrast. Coronal an d sagittal reformatted images were created from the data set. One or more of the following dose reduction techniques were used: Automated exposure control, adjustment of the mA and/or kV according to patient size, and/or iterative reconstruction. Unless otherwise specified, incidental findings do not require dedicated imaging follow-up. [id number]. COMPARISON: No prior exam. FINDINGS: INTRACRANIAL: No acute intracranial hemorrhage. No hydrocephalus. No mass effect or midline shift. No significant white matter disease.Age advanced cerebral atrophy. VASCULATURE: No visualized abnormalities in the arteries or dural venous sinuses. SCALP/SKULL: No significant soft tissue or osseous abnormalities. SINUSES: The visualized paranasal sinuses and mastoid air cells are predominantly clear. IMPRESSION: No acute intracranial abnormality.
[2024-08-24] MEDS: ACETAMINOPHEN 325 MG TABLET PO ONE (23:00)
[2024-08-24] MEDS: OXYCODONE HCL 5 MG TAB PO ONE (23:00)
[2024-08-25] MEDS ORDERED: ACETAMINOPHEN 325 MG TABLET ONE
[2024-08-25] MEDS ORDERED: OXYCODONE HCL 5 MG TAB ONE ×2 (00:01→21:25)
[2024-08-25] MEDS: DONEPEZIL HCL 5 MG TAB PO SCH (02:00)
[2024-08-25 05:20] LABS: Absolute Lymphocytes (CBC) 1.8 K/uL (0.7-4.9); Absolute Monocytes 0.3 K/uL (0.1-1.3); Absolute Neutrophil 1.7 K/uL (1.8-8.0); Basophils % 0.3 % (0-1.3); Eosinophils % 0.7 % (0-4.4); Hemoglobin 13.7 g/dL (12.0-15.0); Lymphocytes % 46.2 % (15.3-44.8); MCH 30.1 pg (27.0-35.0); MCHC 34.2 g/dL (32.0-36.0); MCV 88.1 fL (80-100); MPV 6.9 fL (7.6-11.3); Monocytes % 9.1 % (3.3-12.3); Neutrophils % 43.7 % (41.7-73.7); Nucleated Red Blood Cells % 0.1 % (0-0); Platelets 198 thou/uL (152-406); RBC Red Blood Cell Count 4.53 M/uL (3.86-4.86); Red Cell Distribution Width 13.6 % (12.1-15.2)
[2024-08-25 06:02] LABS: Albumin 3.3 g/dL (3.4-5.0); Anion Gap 3.6 mEq/L (5.0-15.0); Bilirubin Total 0.6 mg/dL (0.2-1.0); Globulin 3.3 g/dL (2.3-3.5); Protein, Total 6.6 g/dL (6.4-8.2); Troponin High Sensitivity 7.3 pg/mL (<58.9)
[2024-08-25 06:03] LABS: Potassium 3.6 mEq/L (3.5-5.1)
[2024-08-25] MEDS ORDERED: FAMOTIDINE 20 MG TAB ONE (08:07)
[2024-08-25] MEDS ORDERED: ENOXAPARIN 40 MG/0.4 ML SQ ONE (08:07)
[2024-08-25] MEDS ORDERED: AMLODIPINE 5 MG TAB ONE ×2 (08:07)
[2024-08-25] MEDS: ENOXAPARIN 40 MG/0.4 ML SQ SCH (08:11)
[2024-08-25] MEDS: FAMOTIDINE 20 MG TAB PO SCH (08:12)
[2024-08-25] MEDS: CITALOPRAM 10 MG TABLET PO SCH (09:00)
--- NOTE | 2024-08-25 09:20 | P.PN ---
Date of Service: 08/25/24 Subjective No c/o. Still with malaise, mild nausea. Review of Systems General: Sweats, Weakness, Malaise ENT: Nose Discharge, Nose Congestion Gastrointestinal: Nausea Neurological: Weakness Physical Examination - Physical Exam General: Alert, In no apparent distress, Oriented x3, Cooperative HEENT: Atraumatic, Normocephalic, PERRLA Neck: Supple, 2+ carotid pulse no bruit, JVD not distended Respiratory: Clear to auscultation bilaterally, Normal air movement Cardiovascular: Normal pulses, Regular rate/rhythm, Normal S1 S2, rate 78 on tele monitor Gastrointestinal: Normal bowel sounds, Soft and benign, Non-distended, No ascites, No tenderness Musculoskeletal: No clubbing, No swelling Neurological: Normal speech, Normal strength at 5/5 x4 extr, Normal tone, Sensation intact, Cranial nerves 3-12 intact - Studies Laboratory Data (last 24 hrs) 08/24/24 08/24/24 18:04 18:04 WBC 5.10 Hgb 14.3 Hct 40.9 Plt Count 219 Sodium 138 Potassium 3.6 BUN 15 Creatinine 1.12 H Glucose 105 Magnesium 2.1 Total Bilirubin 0.7 AST 19 ALT 27 Alkaline Phosphatase 98 Microbiology Data (last 24 hrs): 08/24/24 18:02 Nasopharnyx Influenza Type A Antigen Screen - Final 08/24/24 18:02 Nasopharnyx Influenza Type B Antigen Screen - Final 08/24/24 18:02 Nasopharnyx Respiratory Syncytial Virus Ag Scrn - Final Assessment and Plan - Problems (Diagnosis) (1) Weakness Current Visit: Yes Status: Acute (2) Hypertension Current Visit: Yes Status: Acute (3) AV block Current Visit: Yes Status: Acute (4) AV block, 2nd degree Current Visit: Yes Status: Acute - Plan Impression Weaknessmay be due to viral syndrome versus AV block etiology Second-degree AV block- new onset Hypertension Cognitive declinestable Plan Will admit patient to telemetry Place in telemetry Cardiology consult in a.m. Hold metoprolol as per cardiology (no metoprolol listed on home medications) Heart rate stable, continue to monitor, tele at bedside with rate 78 Obtain TSH (0.85) as well as magnesium level (2.3) Borderline fever as well as nasal congestion worrisome for viral syndrome, influenza/RSV as well as COVID screen negative Resume Aricept Continue Plavix Lovenox for DVT prophylaxis GI prophylaxis with PPI Full code PT and OT eval Possible hospital stay for 24 to 48 hours Discharge Plan: Home Plan to discharge in: 24 Hours - Advance Directives Does patient have a Living Will: No Does patient have a Durable POA for Healthcare: No
[2024-08-25] MEDS ORDERED: ONDANSETRON 4 MG/2 ML VIAL ONE (12:28)
[2024-08-25] MEDS: ONDANSETRON 4 MG/2 ML VIAL IV PRN (12:31)
[2024-08-25] MEDS: PROMETHAZINE 25 MG TABLET PO ONE (16:15)
[2024-08-25] MEDS ORDERED: lisinopriL 10 MG TAB ONE (17:04)
[2024-08-25] MEDS: lisinopriL 10 MG TAB PO SCH (17:30)
[2024-08-25] MEDS ORDERED: ACETAMINOPHEN 325 MG TABLET PO SCH (21:00)
[2024-08-25] MEDS: OXYCODONE HCL 5 MG TAB PO SCH (21:00)
[2024-08-25 22:51] VITALS: BMI 22.3
[2024-08-25] MEDS: LORAZEPAM 0.5 MG TABLET PO PRN (22:56)
[2024-08-25] MEDS: ACETAMINOPHEN 500 MG TAB PO PRN (22:56)
[2024-08-26] MEDS: CLOPIDOGREL 75 MG TABLET PO SCH (09:57)
[2024-08-26] MEDS: METOPROLOL TARTRATE 5 MG/5 ML INJ IV ONE (09:58)
[2024-08-26] MEDS: HEPARIN/D5W 25,000 UNIT/500 ML BAG IV SCH (10:02)
[2024-08-26] MEDS: AMIODARONE HCL 150 MG in D5W 100 ML IV ONE (11:31)
[2024-08-26] MEDS: AMIODARONE HCL 900 MG in Dextrose 5%-Water 482 ML IV SCH (11:36)
--- NOTE | 2024-08-26 12:14 | P.CNS ---
Date of Consult: 08/26/24 Chief Complaint: Weakness History of Present Illness: Patient presented with generalized weakness, patient denies any cardiac symptoms, she has dementia so she can not answer why she was admitted to the hospital, cardiology was consulted with second degree type 2 heart block. Allergies aspirin Allergy (Verified 09/05/18 11:17) Hives codeine Allergy (Verified 09/05/18 11:17) Hives meperidine [From Demerol] Allergy (Verified 09/05/18 11:17) Hives Penicillins Allergy (Verified 09/05/18 11:17) Hives Sulfa (Sulfonamide Antibiotics) Allergy (Verified 09/05/18 11:17) Hives Home medications list reviewed: Yes Home Medications: RX: Citalopram [Celexa*] 20 mg PO DAILY 09/05/18 RX: Oxycodone HCl/Acetaminophen [Oxycodone-Acetaminophen 10-325] 0.5 tab PO BEDTIME 09/05/18 RX: diazePAM [Valium] 10 mg PO BEDTIME 09/05/18 RX: lisinopriL [Prinivil*] 10 mg PO DAILY AFTER SUPPER 09/05/18 - Past Medical/Surgical History Diabetic: No -: HTN -: Cognitive decline -: [place]-no hearing aides -: anxiety -: cheolecystectomy - Social History Alcohol use: No CD- Drugs: Yes Caffeine use: Yes Place of Residence: Home Review of Systems 10-point ROS is otherwise unremarkable Physical Examination Temp Pulse Resp BP Pulse Ox 98.6 F 65 16 123/82 96 08/26/24 08:00 08/26/24 08:00 08/26/24 08:00 08/26/24 08:00 08/26/24 08:00 General: Alert, In no apparent distress HEENT: Atraumatic, PERRLA, Mucous membr. moist/pink, EOMI, Sclerae nonicteric Neck: Supple, 2+ carotid pulse no bruit, No LAD, Without JVD or thyroid abnormality Respiratory: Clear to auscultation bilaterally, Normal air movement Cardiovascular: Regular rate/rhythm, Normal S1 S2 Gastrointestinal: Normal bowel sounds, No tenderness Musculoskeletal: No tenderness Integumentary: No rashes Neurological: Normal gait, Normal speech, Normal tone, Normal affect Lymphatics: No axilla or inguinal lymphadenopathy - Problems (1) Atrial fibrillation Current Visit: Yes Status: Acute Plan: patient went into AF this morning. amiodarone bolus and drip started Eliquis 2.5 mg po BID Get echo (2) AV block, 2nd degree Current Visit: Yes Status: Acute Plan: reported on EKG, although EKG was reviewed and was not able to identify heart block continue to monitor on tele hold AVN blocking agents hold aricept
--- NOTE | 2024-08-26 13:49 | ECHO ---
HEIGHT: 5 ft 5 in WEIGHT: 134 lb 1.6 oz DATE OF STUDY: 08/26/[address]: Nina Zarco STRINGS TEACHER-BC 2-DIMENSIONAL: YES M.MODE: YES DOPPLER: YES COLOR FLOW: YES TDS: NO PORTABLE: YES DEFINITY: NO BUBBLE STUDY: NO DIAGNOSIS: FREQUENT RHYTHM CHANGE CARDIAC HISTORY: CATHERIZATION: NO SURGERY: NO PROSTHETIC VALVE: NO PACEMAKER: NO MEASUREMENTS (cm) DIASTOLIC (NORMALS) SYSTOLIC (NORMALS) IVSd 1.0 (0.6-1.2) LA Diam 3.5 (1.9-4.0) LVEF 60-65% LVIDd 3.6 (3.5-5.7) LVIDs 1.9 (2.0-3.5) %FS 47% LVPWd 1.0 (0.6-1.2) Ao Diam 2.8 (2.0-3.7) 2 DIMENSIONAL ASSESSMENT: RIGHT ATRIUM: NORMAL LEFT ATRIUM: MODERATELY DILATED RIGHT VENTRICLE: NORMAL LEFT VENTRICLE: NORMAL TRICUSPID VALVE: MILD TRICUSPID REGURGITATION MITRAL VALVE: NORMAL PULMONIC VALVE: NORMAL AORTIC VALVE: NORMAL PERICARDIAL EFFUSION: NONE AORTIC ROOT: NORMAL LEFT VENTRICULAR WALL MOTION: NORMAL. DOPPLER/COLOR FLOW: UNABLE TO ESTIMATE DUE TO ARRHYTMIA. COMMENTS: 1. NORMAL LEFT VENTRICULAR SYSTOLIC FUNCTION, EJECTION FRACTION 60-65%, NORMAL WALL MOTION. 2. NORMAL FILLING PRESSURE. TECHNOLOGIST: LINK HARTMANN
[2024-08-26] MEDS: APIXABAN 2.5 MG TABLET PO SCH (14:38)
--- NOTE | 2024-08-26 20:35 | P.PN ---
Date of Service: 08/26/24 Subjective No c/o. Still with malaise, mild nausea. Review of Systems General: Sweats, Weakness, Malaise ENT: Nose Discharge, Nose Congestion Gastrointestinal: Nausea Neurological: Weakness Physical Examination - Physical Exam General: Alert, In no apparent distress, Oriented x3, Cooperative HEENT: Atraumatic, Normocephalic, PERRLA Neck: Supple, 2+ carotid pulse no bruit, JVD not distended Respiratory: Clear to auscultation bilaterally, Normal air movement, mild shortness of breath Cardiovascular: Normal pulses, iregularly irregular rate/rhythm, Normal S1 S2, rate 130-170s on tele monitor Gastrointestinal: Normal bowel sounds, Soft and benign, Non-distended, No ascites, No tenderness Musculoskeletal: No clubbing, No swelling Neurological: Normal speech, Normal strength at 5/5 x4 extr, Normal tone, Sensation intact, Cranial nerves 3-12 intact Assessment and Plan - Problems (Diagnosis) (1) Weakness Current Visit: Yes Status: Acute (2) Hypertension Current Visit: Yes Status: Acute (3) AV block Current Visit: Yes Status: Acute - Plan Impression Weaknessmay be due to viral syndrome versus AV block etiology (not a lot of evidence of AV block on EKGs yesterday a. fib with RVR- new onset this am Hypertension Cognitive declinestable Plan Will admit patient to telemetry Dr. Mills consulting Hold metoprolol as per cardiology (no metoprolol listed on home medications) Pt converted to a. fib with RVR this am Obtain TSH (0.85) as well as magnesium level (2.3) yest Borderline fever as well as nasal congestion worrisome for viral syndrome, influenza/RSV as well as COVID screen negative, no fever overnight Resume Aricept - stop aricept second to rhythm changes Continue Plavix Start heparin drip GI prophylaxis with PPI Full code PT and OT eval 08/26/[address] Mills later this am, will give amiodarone 150mg bolus and then start drip as heparin had not been started, will give Eliquis 2.5mg po BID. will get ECHO Will switch to po amiodarone post 24h Possible hospital stay for 48 hours Discharge Plan: Home Plan to discharge in: 24 Hours - Advance Directives Does patient have a Living Will: No Does patient have a Durable POA for Healthcare: No
[2024-08-26] MEDS ORDERED: APIXABAN 2.5 MG TABLET PO SCH (21:00)
[2024-08-27 05:37] LABS: Absolute Eosinophils 0.1 K/uL (0-0.5); Absolute Lymphocytes (CBC) 1.4 K/uL (0.7-4.9); Absolute Monocytes 0.3 K/uL (0.1-1.3); Absolute Neutrophil 3.3 K/uL (1.8-8.0); Basophils % 0.4 % (0-1.3); Eosinophils % 1.7 % (0-4.4); Hematocrit 40.6 % (36.0-45.0); Hemoglobin 13.6 g/dL (12.0-15.0); Lymphocytes % 27.2 % (15.3-44.8); MCH 30.1 pg (27.0-35.0); MCHC 33.4 g/dL (32.0-36.0); MCV 90.2 fL (80-100); Neutrophils % 64.7 % (41.7-73.7); Nucleated Red Blood Cells % 0.1 % (0-0); Platelets 240 thou/uL (152-406); Red Cell Distribution Width 13.6 % (12.1-15.2)
[2024-08-27 06:06] LABS: Albumin 3.1 g/dL (3.4-5.0); Anion Gap 6.7 mEq/L (5.0-15.0); Bilirubin Total 0.7 mg/dL (0.2-1.0); Globulin 3.2 g/dL (2.3-3.5); Magnesium 2.3 mg/dL (1.6-2.4); Potassium 3.7 mEq/L (3.5-5.1); Protein, Total 6.3 g/dL (6.4-8.2)
[2024-08-27 07:24] VITALS: O2SAT 94
--- NOTE | 2024-08-27 10:25 | P.PN ---
Subjective Date of Service: 08/27/24 Chief Complaint: Weakness Subjective: No new changes, No C/O voiced, Tolerating diet, Ambulating, Improving Review of Systems 10-point ROS is otherwise unremarkable Physical Examination - Vital Signs Temperature: 98.2 F Blood Pressure: 119/71 Pulse: 62 Respirations: 14 Pulse Ox (%): 97 - Physical Exam General: Alert, In no apparent distress HEENT: Atraumatic, PERRLA, EOMI Neck: Supple, JVD not distended Respiratory: Clear to auscultation bilaterally, Normal air movement Cardiovascular: Regular rate/rhythm, Normal S1 S2 Gastrointestinal: Normal bowel sounds, No tenderness Musculoskeletal: No tenderness Integumentary: No rashes Neurological: Normal speech, Normal tone, Normal affect Lymphatics: No axilla or inguinal lymphadenopathy - Studies Medications List Reviewed: Yes Assessment And Plan - Current Problems (Diagnosis) (1) Atrial fibrillation Current Visit: Yes Status: Acute Plan: patient tele shows she is in sinus rhythm with no pauses stop amiodarone drip and switch to amiodarone 200 mg daily Eliquis 2.5 mg po BID Echo shows normal EF. (2) AV block, 2nd degree Current Visit: Yes Status: Acute Plan: reported on EKG, although EKG was reviewed and was not able to identify heart block continue to monitor on tele hold AVN blocking agents hold aricept
[2024-08-27] MEDS: AMIODARONE HCL 200 MG TAB PO SCH ×2 (11:00→14:04)
--- NOTE | 2024-08-27 12:38 | EKG ---
Test Date: 2024-08-24 Test Time: 18:09:46 Cigarette Filter Inspector: RENÉE MEASUREMENT RESULTS: Intervals: Rate: 63 ND: 168 QRSD: 82 QT: 442 QTc: 452 [place]: P: 67 ND: 168 QRS: -45 T: 80 INTERPRETIVE STATEMENTS: Sinus tachycardia with 2nd degree AV block with 3:1 AV conduction Left anterior fascicular block Nonspecific ST and T wave abnormality Abnormal ECG Compared to ECG 06/19/2014 09:03:53 Left anterior fascicular block now present ST (T wave) deviation now present Sinus rhythm no longer present Ventricular premature complex(es) no longer present First degree AV block no longer present Electronically Signed On 08-27-24 12:33:16 COSTUME DESIGN TEACHER by Jimmy Mills
--- NOTE | 2024-08-27 12:38 | EKG ---
Test Date: 2024-08-24 Test Time: 19:38:19 Robotics Engineer: ALEJANDRO MEASUREMENT RESULTS: Intervals: Rate: 57 NH: 176 QRSD: 80 QT: 440 QTc: 428 [place]: P: 71 NH: 176 QRS: -50 T: 98 INTERPRETIVE STATEMENTS: Sinus bradycardia Left anterior fascicular block Nonspecific ST and T wave abnormality Abnormal ECG Compared to ECG 08/24/2024 18:09:46 Sinus tachycardia no longer present ST (T wave) deviation still present Electronically Signed On 08-27-24 12:33:11 PLASMA PROCESSING CENTRIFUGE OPERATOR by Jimmy Mills
--- NOTE | 2024-08-27 14:33 | P.DS ---
Admission Date: 08/26/24 Discharge Date: 08/27/24 Disposition: TRANSFER TO CUSTODIAL Discharge Condition: GOOD Reason for Admission: Weakness Consultations: Dr. Mills Procedures: ECHO normal EF Brief History of Present Illness: 84-year-old female past medical history of hypertension, cognitive decline/dementia on Aricept, resident of independent living facility at [facility] , who presented due to increasing weakness, nasal congestion as well as intermittent nausea since the last 3 days. Patient states she has been feeling more fatigued. She denies any fever or chills. She denies any headache or dizziness. She denies any shortness of breath. She denies any sick contact. Arrival in the ED vital signs were stable blood pressure 146/76 heart rate ranging from 64-68. Temp was marginal at 99.1. Chest x-ray shows no acute infiltrate, UA was negative, CBC and BMP were unremarkable except for creatinine of 1.1. EKG shows second-degree AV block with presumed Mobitz type II. Patient is being admitted for presumed heart block. Cardiology Dr. Dc was discussed with by the ED team and recommended holding patient metoprolol and monitoring Hospital Course: Ms. Santacruz was admitted for weakness and dizziness. There was some concern for AV block but it was not seen on initial EKGs. The morning of 08/26/2024 she did convert to A-fib with RVR. She was given 150 mg amiodarone push and then started on amiodarone drip. She was seen by cardiology and had an echocardiogram which showed a normal ejection fraction. This morning she is feeling back to her baseline, although very demented at baseline, her daughter would like her to return to her nursing facility. She is now in normal sinus rhythm. She will be switched to 200 mg amiodarone twice daily and Eliquis 2.5 mg p.o. twice daily and should discontinue Aricept and metoprolol. Vital Signs/Physical Exam: Temp Pulse Resp BP Pulse Ox 98.3 F 70 12 122/73 97 08/27/24 12:00 08/27/24 12:00 08/27/24 12:00 08/27/24 12:08/27/24 12:00 General: Alert, In no apparent distress, Demented HEENT: Atraumatic, Normocephalic Neck: Supple, 2+ carotid pulse no bruit Respiratory: Clear to auscultation bilaterally, Normal air movement Cardiovascular: No edema, Normal pulses, Regular rate/rhythm, Normal S1 S2 Capillary refill: <2 Seconds Gastrointestinal: Soft and benign Musculoskeletal: No clubbing, No swelling Integumentary: No rashes Neurological: Normal speech, Normal tone, Abnormal affect Lymphatics: No axilla or inguinal lymphadenopathy External genitalia: Deferred Rectal: Deferred Laboratory Data at Discharge: WBC 5.10 thou/uL (4.3-10.9) 08/27/24 05:04 Hgb 13.6 g/dL (12.0-15.0) 08/27/24 05:04 Hct 40.6 % (36.0-45.0) 08/27/24 05:04 Plt Count 240 thou/uL (152-406) 08/27/24 05:04 APTT 25.5 SECONDS (24.3-36.9) 08/26/24 09:30 Sodium 139 mEq/L (136-145) 08/27/24 05:04 Potassium 3.7 mEq/L (3.5-5.1) 08/27/24 05:04 BUN 18 mg/dL (7-18) 08/27/24 05:04 Creatinine 1.34 mg/dL (0.55-1.02) H 08/27/24 05:04 Glucose 110 mg/dL (74-106) H 08/27/24 05:04 Magnesium 2.3 mg/dL (1.6-2.4) 08/27/24 05:04 Total Bilirubin 0.7 mg/dL (0.2-1.0) 08/27/24 05:04 AST 12 U/L (15-37) L 08/27/24 05:04 ALT 25 U/L (13-56) 08/27/24 05:04 Alkaline Phosphatase 84 U/L (45-117) 08/27/24 05:04 Triglycerides 164 mg/dL (<150) H 08/25/24 05:06 Cholesterol 143 mg/dL (<200) 08/25/24 05:06 HDL Cholesterol 52 mg/dL (40-60) 08/25/24 05:06 Cholesterol/HDL Ratio 2.75 08/25/24 05:06 Home Medications: Citalopram [Celexa*] 20 mg PO DAILY 09/05/18 diazePAM [Valium] 10 mg PO BEDTIME 09/05/18 Albuterol Neb [Proventil 0.083% Neb Soln] 2.5 mg NEB Q6HP PRN amp 08/27/24 Amiodarone HCl [Cordarone*] 200 mg PO BID #60 tab 08/27/24 Apixaban [Eliquis *] 2.5 mg PO BID #60 tab 08/27/24 Clopidogrel Bisulfate [Plavix*] 75 mg PO DAILY 08/27/24 LORazepam [Ativan*] 0.5 mg PO DAILY PRN tab 08/27/24 lisinopriL [Prinivil*] 10 mg PO DAILY AFTER SUPPER tab 08/27/24 New Medications: Amiodarone HCl [Cordarone*] 200 mg PO BID #60 tab Apixaban [Eliquis *] 2.5 mg PO BID #60 tab Physician Discharge Instructions: Ms. Santacruz was admitted for weakness and dizziness. There was some concern for AV block but it was not seen on initial EKGs. The morning of 08/26/2024 she did convert to A-fib with RVR. She was given 150 mg amiodarone push and then started on amiodarone drip. She was seen by cardiology and had an echocardiogram which showed a normal ejection fraction. This morning she is feeling back to her baseline, although very demented at baseline, her daughter would like her to return to her nursing facility. She is now in normal sinus rhythm. She will be switched to 200 mg amiodarone twice daily and Eliquis 2.5 mg p.o. twice daily and should discontinue Aricept and metoprolol. Diet: AHA Activity: Fall precautions Followup: NONE,NONE [Primary Care Provider] -
[2024-08-27 16:24] VITALS: BP 151/78; TEMP 98.8
== END 2024-08-27 16:40 | DRG 310 ==
LOC: ER 16:30 → ERHOLD 21:25 → 2ND 08-25 21:46 → OBSVTOIN 08-26 07:37
PROVIDERS: ADMIT Internal Medicine; ATTEND Internal Medicine
DX: I48.91 Unspecified atrial fibrillation (principal); I44.1 Atrioventricular block, second degree; I10 Essential (primary) hypertension; F03.90 Unspecified dementia, unspecified severity, without behavioral disturbance, psychotic disturbance, mood disturbance, and anxiety; Z88.6 Allergy status to analgesic agent; Z88.5 Allergy status to narcotic agent; Z88.0 Allergy status to penicillin; Z88.8 Allergy status to other drugs, medicaments and biological substances; Z88.2 Allergy status to sulfonamides; Z79.02 Long term (current) use of antithrombotics/antiplatelets; Z79.899 Other long term (current) drug therapy; Z90.49 Acquired absence of other specified parts of digestive tract; Z11.52 Encounter for screening for COVID-19
CPT/HCPCS: 36415; 70450; 71045; 80048; 80053; 80061; 80076; 81001; 83735; 84443; 84484; 85025; 85730; 87804; 87807; 87811; 93005; 93306; 96374; 97116; 97161; 97165; 99285; G0378; J0282; J1650; J2405; J7060; Q0169

== ENCOUNTER 2024-11-14 10:26 | Day surgery (SDC) | payer OTHER ==
[2024-11-12 11:29] LABS: Absolute Eosinophils 0.1 K/uL (0-0.5); Absolute Lymphocytes (CBC) 1.3 K/uL (0.7-4.9); Absolute Monocytes 0.3 K/uL (0.1-1.3); Absolute Neutrophil 3.3 K/uL (1.8-8.0); Basophils % 0.8 % (0-1.3); Eosinophils % 1.4 % (0-4.4); Hematocrit 41.5 % (36.0-45.0); Hemoglobin 14.2 g/dL (12.0-15.0); Lymphocytes % 25.1 % (15.3-44.8); MCH 31.1 pg (27.0-35.0); MCHC 34.3 g/dL (32.0-36.0); MCV 90.7 fL (80-100); MPV 7.8 fL (7.6-11.3); Monocytes % 5.7 % (3.3-12.3); Nucleated Red Blood Cells % 0.1 % (0-0); Platelets 226 thou/uL (152-406); RBC Red Blood Cell Count 4.57 M/uL (3.86-4.86)
[2024-11-12 11:40] LABS: PT Prothrombin Time 10.7 SECONDS (10-13.0); PTT, Activated Partial Thromb 31.5 SECONDS (27.2-37.4); Protime INR 0.94
[2024-11-12 11:46] LABS: Anion Gap 7.7 mEq/L (5.0-15.0); Potassium 3.7 mEq/L (3.5-5.1)
[2024-11-14] MEDS: Ringers Lactate 1,000 ML IV ONE (10:40)
[2024-11-14] MEDS ORDERED: FENTANYL CITR 100 MCG/2 ML ONE (11:34)
[2024-11-14] MEDS ORDERED: propofoL 200 MG/20 ML VIAL IV ONE (11:34)
[2024-11-14] MEDS ORDERED: LIDOCAINE 2% MPF 5 ML VIAL ONE (11:34)
[2024-11-14] MEDS: CEFAZOLIN SODIUM 1 GM/VIAL ONE (12:31)
[2024-11-14] MEDS: LIDOCAINE HCL/EPINEPHRINE 20 ML MDV ONE (12:33)
[2024-11-14] MEDS ORDERED: GLYCOPYRROLATE 0.2 MG/ML SYR ONE ×2 (12:48→12:51)
[2024-11-14] MEDS ORDERED: ONDANSETRON 4 MG/2 ML VIAL ONE (13:17)
[2024-11-14] MEDS ORDERED: dexAMETHasone 10 MG/ML VIAL ONE (13:17)
--- NOTE | 2024-11-14 13:42 | P.OP ---
Preoperative diagnosis: Central Chest Skin Cancer Postoperative diagnosis: Central Chest Skin Cancer Primary procedure: Wide Excision of Central Chest Skin Cancer Anesthesia: GETA + Local Estimated blood loss: <5cc Specimen: 8cm x 6cm skin ellipse of central chest Complications: None Implants: Stravix 6cm x 3cm Transferred to: Recovery Room Condition: Good
[2024-11-14 15:52] VITALS: BP 143/78; TEMP 97.8; O2SAT 96
--- NOTE | 2024-11-14 20:54 | OP ---
Date of Procedure: 11/14/2024 Surgeon: Carlos Prater MD, Preoperative Diagnosis: Central chest skin cancer. Postoperative Diagnosis: Central chest skin cancer. Procedure Performed: Wide excision of central chest skin cancer. Anesthesia: General endotracheal plus local 1% lidocaine. Estimated Blood Loss: Less than 5 cc. Specimens: 8 cm x 6 cm ellipse of skin with approximately 4 cm round exophytic ulcerated skin lesion which is nonpigmented, consistent with skin cancer diagnosis, nonmelanoma in appearance. Complications: None. Implants: Stratafix 6 cm x 3 cm humid umbilical tissue. Disposition: The patient was transferred to recovery room in good condition. Procedure In Detail: After informed consent was obtained, the patient was brought to the operating r oom, prepped and draped in the usual sterile fashion. After adequate anesthesia was achieved, I yoandy ed an area circumferentially around a very large 4 cm exophytic ulcerated mass of the central chest w ith approximately 1.5 cm margins circumferentially around that using a marking pen. At this point, I followed the outline with the 15 blade down to subcutaneous fat ultimately removing the entire ellip se. Marking stitches were placed short superior, long right lateral. The specimen sent off for path ologic examination. The area was copiously irrigated. At this point, hemostasis was achieved with m inimal electrocautery. I then partially reapproximated the wound using interrupted 3-0 Prolene sutur es to make the size defect approximately 6 cm x 3 cm. At this point, I hydrated Stratafix umbilical tissue from [employer], brought her onto the field, fenestrated the graft myself using an 11 bl seferino. Ultimately, I placed the graft into the defect and circumferentially secured it around using th e same set 3-0 Prolene suture, circumferentially around, and secured the central portion down to the chest wall using the same said 3-0 Prolene suture in an interrupted fashion. I then applied a protec tive dressing, which was placed over the top and then sterile gauze was placed damp to dry and tape w as applied. The patient tolerated the procedure well without incident or complication and transferre d to PACU in good condition. All counts were correct at the end of the case. TK/MODL Voice ID: [id number] Report ID: [id number]
== END 2024-11-14 15:10 | disposition home or self-care (01) ==
LOC: OR 10:26
PROVIDERS: ATTEND Surgery
PROC: 0JB60ZZ Excision of Chest Subcutaneous Tissue and Fascia, Open Approach (ICD-10-PCS; principal; 2024-11-14 13:15)
DX: C44.529 Squamous cell carcinoma of skin of other part of trunk (principal)
CPT/HCPCS: 11606; 15271; 85025; 80048; 36415; 85610; 88305; 85730; J2704; J2003; J3010; J1100; J2405; J7120; J0690